=== PATIENT | female | born 1960 | race Caucasian/White ===

== ENCOUNTER 2020-06-23 11:38 | Outpatient (CLI) | payer OTHER, SELFPAY ==
--- NOTE | ~2020-06-23 | XR_ITS ---
EXAMINATION: XR chest 2V DATE: 06/23/2020 12:56 INDICATION: Preoperative evaluation. Perivascular risk factor of hypercholesterolemia. TECHNIQUE: PA and lateral views of the chest were obtained. COMPARISON: Chest radiograph dated 11/12/2009 FINDINGS: Small calcified nodule in the right lower lobe consistent with old granulomatous disease. No other ai rspace opacities, pulmonary edema, pleural effusion or pneumothorax. The cardiomediastinal silhouette is normal. Small bone island at the right humeral head. IMPRESSION: 1. No acute cardiopulmonary disease. Reviewed, dictated and finalized at location A.
--- NOTE | 2020-06-23 12:30 | ECG_ITS ---
Measurements Intervals [place] Rate: 62 P: 31 [place]: 113 QRS: 38 QRSD: 83 T: 28 QT: 405 QTc: 412 Interpretive Statements SINUS RHYTHM WITH SHORT [place] INTERVAL INCOMPLETE RIGHT BUNDLE BRANCH BLOCK BORDERLINE ECG Electronically Signed On 06-23-2020 12:56:55 CDT by Sudeep Gray D.O.
[2020-06-23 13:06] LABS: Basophils Absolute Auto 0.1 K/mm3 (0.0-0.1); Basophils Percent Auto 0.8 % (0.2-1.2); Eosinophils Absolute Auto 0.2 K/mm3 (0-0.3); Eosinophils Percent Auto 2.7 % (0-4.4); Hematocrit 39.7 % (37.0-47.0); Hemoglobin 12.9 g/dL (12.0-15.0); Immature Granulocyte Absolute 0.02 K/mm3 (0.00-0.031); Immature Granulocyte Percent A 0.3 % (0-0.5); Lymphocytes Absolute Auto 1.58 K/mm3 (0.9-3.2); Lymphocytes Percent Auto 25.5 % (18.3-44.2); Mean Corpuscular HGB Conc 32.5 g/dl (32-36); Mean Corpuscular Hemoglobin 30.7 pg (26-34); Mean Corpuscular Volume 94.5 fl (80-100); Monocytes Absolute Auto 0.6 K/mm3 (0.1-0.6); Neutrophils Absolute Auto 3.8 K/mm3 (1.3-6.7); Neutrophils Percent Auto 61.7 % (45.5-73.1); Platelet Count Result 261 k/mm3 (150-375); Red Cell Distribution Width 12.7 % (11.5-14.5); White Blood Count 6.2 K/mm3 (4.5-10.0)
[2020-06-23 13:14] LABS: Albumin Level 4.5 g/dL (3.5-5.1); Anion Gap 6 mmol/L (8-16); Blood Urea Nitrogen 19 mg/dL (7-17); Calcium 9.6 mg/dL (8.4-10.2); Carbon Dioxide 33 mmol/L (22-30); Chloride 100 mmol/L (98-107); Estimated Glomerular Filt Rate > 60; Glucose 96 mg/dL (65-105); Potassium 4.5 mmol/L (3.4-5.0); Sodium 139 mmol/L (137-145)
[2020-06-23 13:15] LABS: Urine Cotinine NEGATIVE
[2020-06-23 13:21] LABS: Hemoglobin A1C 4.9 % (<5.7)
== END 2020-06-23 11:39 | disposition home or self-care (01) ==
PROVIDERS: PCP Family Medicine; Visit Provider Orthopaedic Surgery
DX: Z01.812 Encounter for preprocedural laboratory examination (principal); M17.11 Unilateral primary osteoarthritis, right knee; I45.10 Unspecified right bundle-branch block; Z79.899 Other long term (current) drug therapy
CPT/HCPCS: 36415; 71046; 80048; 80307; 82040; 83036; 85025; 86850; 86900; 86901; 87070; 87077; 87186; 93005

== ENCOUNTER 2020-07-02 00:22 | Outpatient (CLI) | payer OTHER, SELFPAY ==
[2020-07-02 18:02] LABS: SARS-CoV-2 RNA PCR Negative
== END 2020-07-02 00:23 | disposition home or self-care (01) ==
LOC: ANHCOVIDDT 00:22
PROVIDERS: PCP Family Medicine; Visit Provider Orthopaedic Surgery
DX: Z01.812 Encounter for preprocedural laboratory examination (principal); Z20.828 Contact with and (suspected) exposure to other viral communicable diseases
CPT/HCPCS: 87635; C9803; U0003

== ENCOUNTER 2020-07-06 13:25 | Observation (INO) | payer OTHER, SELFPAY ==
[2020-06-23 11:53] VITALS: BP 102/64; PULSE 68; RESP 18; TEMP 36.9; O2SAT 98
[2020-06-23 12:29] VITALS: BMI 27.3
--- NOTE | 2020-07-02 07:49 | PM.IMHP ---
H&P: HPI History of Present Illness Date/Time: 07/02/20 07:49 <NARCISA Sims - Last Filed: 07/02/20 08:04> Chief complaint: RA Right Knee <NARCISA Sims - Last Filed: 07/02/20 08:04> Narrative: Annie Bradley is a 60 [address] Of [address] White who presents today for a right total knee arthroplasty. She has had progressively worsening pain in this knee. She has had arthroscopy done years his knee and difficult with her range of motion following that. She has been diagnosed with sero negative rheumatoid arthritis. She has been multiple medications from the support clerk without improvement of her symptoms. Her arthritis x-rays has progressed over last 4-5 months. Gotten from medications. She has tried cortisone injections, last being in December of this year which 2 weeks of relief. She is miserable on a daily basis with regard to pain the knee and feels she would rather proceed with total knee continue nonsurgical treatment. <NARCISA Sims - Last Filed: 07/02/20 08:04> Review of Systems Review of Systems: All systems reviewed & are unremarkable except as noted in HPI and below <NARCISA Sims - Last Filed: 07/02/20 08:04> [facility] Past Medical History Medical History: Medical History (Updated 07/02/20 @ 12:52 by Franck Harley MD) Hypothyroidism (acquired) Mixed hyperlipidemia <NARCISA Sims - Last Filed: 07/02/20 08:04> Surgical History Surgical History: Surgical History H/O laparoscopy left ovarian cyst <NARCISA Sims - Last Filed: 07/02/20 08:04> Family History Family History: Family History Mother Hypertension Father Family history of cardiovascular disease Other Family history of glaucoma Family history of osteoarthritis Malignant neoplasm of prostate No family history of diabetes mellitus No family history of hypertension No family history of malignant neoplasm <NARCISA Sims - Last Filed: 07/02/20 08:04> Social History Social History: Social History Smoking status: Never smoker Alcohol intake: never Substance use: never Living arrangements: with family Spiritual care concerns: No <NARCISA Sims - Last Filed: 07/02/20 08:04> Meds Home Medications and Allergies Home medications: Home Medications Medication Instructions Recorded Confirmed Type alprazolam 0.5 mg PO HS 06/23/20 07/05/20 History atorvastatin 10 mg PO HS 06/23/20 07/05/20 History fluoxetine 20 mg PO HS 06/23/20 07/05/20 History levothyroxine 50 mcg PO HS 06/23/20 07/05/20 History metoprolol succinate 50 mg PO HS 06/23/20 07/05/20 History trazodone 50 mg PO HS 06/23/20 07/05/20 History <NARCISA Sims - Last Filed: 07/02/20 08:04> Allergies/Adverse reactions: Allergies Allergy/AdvReac Type Severity Reaction Status Date / Time hydroxychloroquine Allergy Mild Numbness Verified 06/30/20 16:21 [From Plaquenil] Sulfa (Sulfonamide Allergy Mild Rash Verified 06/30/20 16:21 Antibiotics) venlafaxine [From Effexor] Allergy Mild Rash Verified 06/30/20 16:21 erythromycin base AdvReac Mild Confusion Verified 06/30/20 16:21 methotrexate AdvReac Mild Unknown Verified 06/30/20 16:21 <NARCISA Sims - Last Filed: 07/02/20 08:04> Exam Narrative: Exam Narrative: 60-year-old female very alert pleasant in distress. She walks with a mild limp due to pain in the right knee. Has mild effusion right knee no redness or warmth. 2+ dorsalis pedis pulse, absent posterior tibial artery pulse. Hip range of motion causes no discomfort. Range of motion right knee is from 0-135 degrees. She has prominent medial pseudolaxity to valgus stress with a good endpoint. Normal AP stability. Negative Stinchfield maneuver. Normal sensation right lower extrem
--- NOTE | 2020-07-02 12:52 | WPDANESEPPF ---
Anes - Initial Pre Proc Eval Procedure: Operation Date: 07/05/20 07:30 Proposed Procedures p Right Total Knee Arthroplasty - Anil Ahn MD Date/Time: 07/02/20 12:52 Surgeon: Anil Ahn MD Pre Op Diagnosis: RA Right Knee Patient Data Age: 60 Gender: F Height: 5 ft 1 in Weight: 65.8 kg Last Vital Signs Temp 98.5 F 06/23/20 11:53 Pulse 68 06/23/20 11:53 Resp 18 06/23/20 11:53 BP 102/64 06/23/20 11:53 Pulse Ox 98 06/23/20 11:53 Allergies Allergy/AdvReac Type Severity Reaction Status Date / Time hydroxychloroquine Allergy Mild Numbness Verified 06/30/20 16:21 [From Plaquenil] Sulfa (Sulfonamide Allergy Mild Rash Verified 06/30/20 16:21 Antibiotics) venlafaxine [From Effexor] Allergy Mild Rash Verified 06/30/20 16:21 erythromycin base AdvReac Mild Confusion Verified 06/30/20 16:21 methotrexate AdvReac Mild Unknown Verified 06/30/20 16:21 Home Medications Medication Instructions Recorded Confirmed Type alprazolam 0.5 mg PO HS 06/23/20 07/05/20 History atorvastatin 10 mg PO HS 06/23/20 07/05/20 History fluoxetine 20 mg PO HS 06/23/20 07/05/20 History levothyroxine 50 mcg PO HS 06/23/20 07/05/20 History metoprolol succinate 50 mg PO HS 06/23/20 07/05/20 History trazodone 50 mg PO HS 06/23/20 07/05/20 History Patient hx anesthesia problems: none Family hx anesthesia problems: none PMFSH Past Medical History Medical History (Updated 07/02/20 @ 12:52 by Franck Harley MD) Hypothyroidism (acquired) Mixed hyperlipidemia Surgical History Surgical History H/O laparoscopy left ovarian cyst Family History Family History Mother Hypertension Father Family history of cardiovascular disease Other Family history of glaucoma Family history of osteoarthritis Malignant neoplasm of prostate No family history of diabetes mellitus No family history of hypertension No family history of malignant neoplasm Social History Social History Smoking status: Never smoker Alcohol intake: never Substance use: never Living arrangements: with family Spiritual care concerns: No Anes - Eval Final PreProcedure Day of Procedure 07/02/20 12:52 Patient weight: normal Heart: regular rate and rhythm Lungs: clear to auscultation Airway: Mallampati scale class III Neurological: alert and oriented Last oral intake: >/= 8 hours ASA classification: II Emergent: no Anesthetic plan: proceed Anesthesia type and monitoring: general LMA and standard monitoring Informed Consent: The patient's anesthetic plan and its attendant risks and benefits were discussed with the patient/family/POA. Questions were solicited and answers provided to the satisfaction of the patient/family/POA.
[2020-07-05] VITALS (12 sets, daily range): BP systolic 111–149; BP diastolic 56–89; PULSE 65–110; RESP 9–20; TEMP 35.9–36.7; O2SAT 91–100
[2020-07-05] MEDS: LACTATED RINGERS 1,000 ML 30 ML IV CONT ×2 (06:43→10:57)
[2020-07-05] MEDS: ACETAMINOPHEN 500 MG TABLET 1000 MG PO ×3 (06:50→18:27)
[2020-07-05] MEDS: TRANEXAMIC ACID 1,000MG/ISO100 1,000 MG/100 ML BAG 200 MG IVPB (07:00)
[2020-07-05] MEDS: KETOROLAC 15 MG/ML VIAL (*BKC) IV PUSH ×2 (07:05→21:21)
--- NOTE | 2020-07-05 07:18 | WPDHPUPDATE1 ---
History and Physical Update Update Date/Time: 07/05/20 07:18 History and Physical has been reviewed, including an updated exam of the patient. There are NO changes in the patient's condition. Risks, benefits, and alternatives have been discussed and questions answered. Patient agrees to proceed with procedure.
[2020-07-05] MEDS: ceFAZolin 2 GM/D5W 50 ML 2 GM/50 ML BAG IVPB (07:57)
[2020-07-05] MEDS: GENTAMICIN BONE CEMENT REFOBACIN 1 EACH TOPICAL (08:11)
[2020-07-05] MEDS: ceFAZolin SODIUM 1 GM VIAL 3 GM IRRIGATION (08:12)
[2020-07-05] MEDS: ceFAZolin SODIUM 1 GM VIAL IV PUSH (09:49)
--- NOTE | 2020-07-05 10:49 | PM.PROC ---
Procedure Note - Detailed Date of procedure: 07/05/20 Pre-op diagnosis: RA Right Knee Post-op diagnosis: same Procedure performed: Right total knee arthroplasty Description of procedure: patient was brought to the operating room and general anesthesia was administered the right knee prepped draped usual fashion. She received 2 g of Ancef weight based vancomycin 1 g of tranexamic acid preoperatively. Limb was exsanguinated and tourniquet elevated to 300 mmHg. A 7 in longitudinal midline incision was used and a vastus medialis splitting approach utilized spoke splitting the vastus medialis at level of the superior pole of patella. Osteophytes were removed around the patella. The patella showed eburnation and cupping due to bone wear on the medial side of the patella that included the central median ridge. Laterally on the entire lateral facet the cartilage was normal. There is a corresponding area of full-thickness cartilage loss and eburnated bone on the medial trochlear ridge. Osteophytes were carefully removed and a Henry very conservative lateral facetectomy performed and the thickness of the patella measured 18 mm. I felt this was too thin to safely resurface her patella and elected to treat the patella with non resurfacing because of its thin status. Next a guide christianne was inserted down the femoral canal after aspiration of canal contents using the 5 degree valgus cutting bushing 9 mm of bone removed the distal femur. This removed about 8 laterally. It was notable that the lateral trochlear ridge Thatch lateral femoral condyle had normal articular cartilage. There is no beefy red synovitis in the knee. The synovium looked planned. Next the tibial plateau was cut. We made a skiving cut off the low point of the medial tibial plateau and because of the fact that she had very little slope, this was just under the subchondral bone line even posteriorly on the medial side. This removed about 9 mm from lateral side. Medial tibial osteophyte was removed and a very conservative medial capsular release was performed to expose the medial tibial plateau. PCL was preserved. The lateral gap was 11 the medial gap 8 mm at 90?. Whitesides line was drawn on the femur earlier and the femoral sizing guide set at 3? external rotation matched Whitesides line exactly. size 62.5 was the appropriate fit on the anterior to posterior dimension however was far too wide. We added a few degrees of posterior slope to the distal femoral cut and cut the femur to a size 60. And this fit flush with the anterior cortex. The tibia was sized to a size 63 which fit line to line anteromedial to posterolateral in proper rotation. This was punched. We trialed with a 10 CR insert and were a little bit tight medially in flexion. In assessing the tibial cut I felt we were degree of valgus and another mm of bone was shaved from the medial side the medial tibial plateau. on trialing were still a bit tight medially. I elected to increase the tibial slope from 3? to 6? and with 3 punching and trialing we had appropriate balance in flexion extension mm applied medially at 90? to laterally and full extension with 1 to 2 mm each of medial and lateral opening in extension. Lug holes in the femoral trial were drilled and step drill was used to make multiple perforations in the dense medial tibial plateau and distal posterior femur. The bony surfaces were thoroughly irrigated and dried. Two batches of methylmethacrylate 1 continue the gentamicin powder mixed immediately applied the 63 tibial and 60 CR femoral components. Cement was applied to the tibia pressurized and the 63 tibia fully seated. Cement applied to the femur and femoral component fully seated the knee brought into about 10? of flexion with an 11 mm CR trial for pressurization. Tourniquet was released 109 minutes. After cement hardening excess cement was sought for removed. We trialed the 10 which had excellent range of motion. With t
--- NOTE | 2020-07-05 11:50 | PC.NURSE ---
This patient, Annie Bradley, was admitted to 2 Medical Room 240-. Patient/family oriented to hospital policies and general routines including ID bracelet, bed and alarms, visiting hours, pain management, procedures, bathroom and other care routines, personal items, smoking policy, room service/diet, and visiting hours. Valuables list has been completed. Information on how to activate the Rapid Response Team has been discussed. Patient/Family are encouraged to report perceived risks to care and to ask questions if they do not understand what they are told or what they should do.
[2020-07-05] MEDS: oxyCODONE HCL (*CRX) 5 MG TAB IR PO ×5 (12:45→23:26)
--- NOTE | 2020-07-05 15:05 | PM.IMCN ---
Assessment and Plan Assessment and plan (1) History of total right knee replacement (TKR): Code(s): Z96.651 - Presence of right artificial knee joint Status: Acute Assessment and Plan: DVT prophylaxis as per orthopedic physician. His affect the patient is going to be on Eliquis. She has bilateral SCDs and TEDs on at this point. Her Arshad dressing to the right knee is dry and intact. no drainage is noted. Pain management per Ortho. On postop care per orthopedic physician. (2) Mixed hyperlipidemia: Code(s): E78.2 - Mixed hyperlipidemia Status: Chronic Assessment and Plan: continue with atorvastatin. (3) Anxiety: Code(s): F41.9 - Anxiety disorder, unspecified Status: Chronic Assessment and Plan: Patient is on Prozac. Her alprazolam is on hold at this time. (4) Hypothyroidism (acquired): Code(s): E03.9 - Hypothyroidism, unspecified Status: Chronic Assessment and Plan: Continue with patient's levothyroxine. (5) Rheumatoid arthritis: Code(s): M06.9 - Rheumatoid arthritis, unspecified Status: Chronic Assessment and Plan: Patient stated that this is very well controlled and cannot tolerate NSAIDs. She said that the NSAIDs have affected her liver and her kidneys in the past. She had been on Cymbalta but was taken off of that is not currently taking any of her medications at this time she is doing well with this. (6) Gastro-esophageal reflux disease without esophagitis: Code(s): K21.9 - Gastro-esophageal reflux disease without esophagitis Status: Acute Additional Plan Tachyarrhythmia patient is on metoprolol for that. She avoids caffeine. Insomnia continue with trazodone. HPI Data of Consult Consult date: 07/05/20 Requesting Physician: Anil Ahn MD Primary Care Provider: Kristopher White MD Consult Narrative Narrative: Annie Bradley is a 60 year old female Who has a history of rheumatoid arthritis be she also has severe osteoarthritis. The patient has been complaining of right knee discomfort. She said it has affected her activities of daily life. She did try a steroid injection that only lasted approximately 2 weeks. The patient stated her initial x-ray showed mild arthritis and it was later repeated and it was showing severe osteoarthritis. The patient was having start-up pain as well as nocturnal pain as well. The patient also tried some exercises which did not help. Her last cortisone injection was December of this year. She has been miserable on daily basis. The patient does not take any medications for her RA she had been on Cymbalta but recently was taken off of it. She cannot tolerate NSAIDs either. She has been doing well with her RA without it. Patient underwent a right total knee today. Please see procedure note that is detailed from today. According to the operative note patient had an estimated blood loss around 150 without any immediate complications. I think orthopedic physician for this consult. The date of service is Review of Systems Review of Systems: All systems reviewed & are unremarkable except as noted in HPI and below Constitutional: Constitutional: Reports as per HPI and Reports no additional constitutional complaints Eyes: Eyes: Reports as per HPI and Reports no additional eye complaints ENT: Reports system reviewed and no additional complaints, except as documented and Reports Normal hearing present Cardiovascular: Cardiovascular: Reports no additional cardiovascular complaints Respiratory: Respiratory: Reports no additional respiratory complaints and Reports no additional respiratory complaints Gastrointestinal: Gastrointestinal: Reports as per HPI and Reports no additional gastrointestinal complaints Musculoskeletal: Musculoskeletal: Reports no additional musculoskeletal complaints Integumentary/Breasts: Skin/Breast: Reports system reviewed and no
[2020-07-05] MEDS: SENNA/DOCUSATE SODIUM TABLET 2 TAB PO (17:25)
[2020-07-05] MEDS: DOCUSATE SODIUM 100 MG CAPSULE PO (17:25)
[2020-07-05] MEDS: METOPROLOL SUCCINATE EXT REL 50 MG TABCR PO (21:17)
[2020-07-05] MEDS: LEVOTHYROXINE SODIUM 50 MCG TABLET PO (21:18)
[2020-07-05] MEDS: traZODone HCL 50 MG TABLET PO (21:18)
[2020-07-05] MEDS: ATORVASTATIN 10 MG TABLET PO (21:18)
[2020-07-05] MEDS: FLUoxetine HCL 20 MG CAPSULE PO (21:18)
[2020-07-05] MEDS: MORPHINE SULFATE (*CRX) 4 MG/ML INJ 2 MG IV PUSH (22:36)
[2020-07-06] VITALS (8 sets, daily range): BP systolic 110–149; BP diastolic 66–83; PULSE 58–81; RESP 14–20; TEMP 36.2–36.9; O2SAT 94–97
--- NOTE | ~2020-07-06 | XR_ITS ---
XR knee RT 2V DATE: 07/05/2020 11:01 INDICATION: Right total knee arthroplasty TECHNIQUE: Postoperative AP and lateral views COMPARISON: None FINDINGS: There is subcutaneous emphysema and intra-articular gas as expected immediately postoperati vely. There is right knee arthroplasty without patellar resurfacing. No fracture or dislocation, gabriele osteal reaction or bone destruction or any unusual radiopaque foreign body is identified. IMPRESSION: Status post right knee arthroplasty Reviewed, dictated and finalized at location B.
[2020-07-06] MEDS: MORPHINE SULFATE (*CRX) 4 MG/ML INJ 2 MG IV PUSH (00:57)
[2020-07-06] MEDS: ACETAMINOPHEN 500 MG TABLET 1000 MG PO ×4 (00:58→18:09)
[2020-07-06] MEDS: CYCLOBENZAPRINE HCL 10 MG TABLET PO ×2 (02:59→10:24)
[2020-07-06] MEDS: oxyCODONE HCL (*CRX) 5 MG TAB IR PO ×5 (03:34→16:09)
[2020-07-06] MEDS: MORPHINE SULFATE (*CRX) 2 MG/ML INJ IV PUSH ×3 (05:12→11:06)
[2020-07-06 06:15] LABS: Basophils Percent Auto 0.1 % (0.2-1.2); Hematocrit 31.3 % (37.0-47.0); Hemoglobin 10.4 g/dL (12.0-15.0); Immature Granulocyte Absolute 0.08 K/mm3 (0.00-0.031); Immature Granulocyte Percent A 0.5 % (0-0.5); Lymphocytes Absolute Auto 1.36 K/mm3 (0.9-3.2); Lymphocytes Percent Auto 9.3 % (18.3-44.2); Mean Corpuscular HGB Conc 33.2 g/dl (32-36); Mean Corpuscular Hemoglobin 30.9 pg (26-34); Mean Corpuscular Volume 92.9 fl (80-100); Mean Platelet Volume 10.4 fl (7.4-10.4); Monocytes Absolute Auto 1.6 K/mm3 (0.1-0.6); Monocytes Percent Auto 10.8 % (2.6-8.5); Neutrophils Absolute Auto 11.6 K/mm3 (1.3-6.7); Neutrophils Percent Auto 79.3 % (45.5-73.1); Platelet Count Result 228 k/mm3 (150-375); Red Blood Count 3.37 M/mm3 (4.2-5.4); Red Cell Distribution Width 12.3 % (11.5-14.5); White Blood Count 14.7 K/mm3 (4.5-10.0)
[2020-07-06 06:38] LABS: Anion Gap 4 mmol/L (8-16); Blood Urea Nitrogen 17 mg/dL (7-17); Carbon Dioxide 31 mmol/L (22-30); Chloride 102 mmol/L (98-107); Estimated CRCL calculation 50 ml/min; Estimated Glomerular Filt Rate > 60; Glucose 122 mg/dL (65-105); Potassium 4.2 mmol/L (3.4-5.0); Sodium 137 mmol/L (137-145)
[2020-07-06] MEDS: MELOXICAM 7.5 MG TABLET PO (08:01)
[2020-07-06] MEDS: polyethylene glycoL 3350 17 GM POWD.PACK PO (08:02)
[2020-07-06] MEDS: DOCUSATE SODIUM 100 MG CAPSULE PO ×2 (08:02→16:10)
[2020-07-06] MEDS: APIXABAN 2.5 MG TABLET PO ×2 (08:02→21:22)
[2020-07-06] MEDS: SENNA/DOCUSATE SODIUM TABLET 2 TAB PO ×2 (08:02→16:09)
--- NOTE | 2020-07-06 10:48 | PM.IMPN ---
Progress Note: A&P Assessment and Plan (1) History of total right knee replacement (TKR): Code(s): Z96.651 - Presence of right artificial knee joint Status: Acute Assessment and Plan: ---- patient is doing well with physical therapy but is having significant pain this afternoon. Hopefully the pain medications will help. Continue Eliquis per ortho recommendations. Okay to discharge from medical standpoint once the patient's pain is controlled and does well with physical therapy. (2) Mixed hyperlipidemia: Code(s): E78.2 - Mixed hyperlipidemia Status: Chronic Assessment and Plan: ---- continue with atorvastatin. (3) Anxiety: Code(s): F41.9 - Anxiety disorder, unspecified Status: Chronic Assessment and Plan: ----- Stable. Patient is on Prozac. (4) Hypothyroidism (acquired): Code(s): E03.9 - Hypothyroidism, unspecified Status: Chronic Assessment and Plan: ----- Continue with patient's levothyroxine. (5) Rheumatoid arthritis: Code(s): M06.9 - Rheumatoid arthritis, unspecified Status: Chronic Assessment and Plan: ----- Patient stated that this is very well controlled and cannot tolerate NSAIDs. She said that the NSAIDs have affected her liver and her kidneys in the past. She had been on Cymbalta but was taken off of that is not currently taking any of her medications at this time she is doing well with this. She needs to follow-up with her primary care physician about this. Additional Plan . Time Spent With Patient Time with patient: 25 - 35 minutes Subjective Date/time seen: 07/06/20 10:48 Interval history: Pt is a 60-year-old female here for right knee replacement. Patient was seen today and states she is in significant pain 06/17. She just got some pain medication and is hoping this will help. Earlier today she was able to do physical therapy including stairs and she did well with that. She has been eating and drinking well. She has not had a bowel movement. She denies chest pain, shortness of breath, fevers, chills, abdominal pain or nausea or vomiting. She has help at home Review of Systems Review of Systems: All systems reviewed & are unremarkable except as noted in HPI and below Exam Narrative: Exam Narrative: General: Well developed well nourished patient resting comfortably in bed in NAD HEENT: normocephalic Neck: supple Neuro: Alert and oriented x4 CV:RRR Resp:CTA Abd: Soft, non distended. No pain to palpation. Positive bowel sounds Extremities: right knee with bandage covering without any excessive bleeding, erythema, or discharge. Pulses and sensation intact. Left leg within normal limits Objective Data Vital Signs Vital Signs: Vital Signs - 24 hr 07/05/20 10:57 07/05/20 11:11 07/05/20 11:25 Temperature 97.4 F L Pulse Rate 110 H 88 90 Respiratory Rate 12 9 L 12 Blood Pressure 124/70 122/69 117/83 Pulse Oximetry 99 100 96 07/05/20 11:50 07/05/20 12:00 07/05/20 12:30 Temperature 96.9 F L 97.0 F L 96.8 F L Pulse Rate 93 86 87 Respiratory Rate 16 16 18 Blood Pressure 138/70 149/79 H 132/66 Pulse Oximetry 92 95 95 07/05/20 13:30 07/05/20 17:30 07/05/20 21:17 Temperature 96.6 F L 98.0 F Pulse Rate 74 72 70 Respiratory Rate 18 18 Blood Pressure 136/64 148/89 H Pulse Oximetry 97 94 07/05/20 21:23 07/06/20 01:23 07/06/20 05:23 Temperature 97.8 F 97.4 F L 97.6 F Pulse Rate 70 81 66 Respiratory Rate 20 20 20 Blood Pressure 144/72 H 118/72 110/68 Pulse Oximetry 95 96 95 07/06/20 09:45 Temperature 98.2 F Pulse Rate 58 L Respiratory Rate 18 Blood Pressure 141/67 H Pulse Oximetry 94 Intake/Output Intake/Output: Intake & Output 07/03/20 07/04/20 07/05/20 07/06/20 23:59 23:59 23:59 23:59 Intake Total 940 1220 Output Total 2100 Balance 940 -880 Meds/Results Medications: Active Medications Generic Name Dose Route St
--- NOTE | 2020-07-06 11:39 | PC.NURSE ---
Patient continues to have uncontrolled pain in right knee. Neurovascular checks remain unchanged. Patient c/o worst pain in inner knee and a soreness like a bruise to the upper leg right above knee. No significant bruising or swelling noted. Dressing remains D/I without drainage on bandage. Called Dr. Ahn and discussed all of the above with him. Orders received.
[2020-07-06] MEDS: oxyCODONE HCL (*CRX) 10 MG TAB SR 12HR PO (12:18)
--- NOTE | 2020-07-06 12:23 | PC.NURSE ---
Capnography on patient as ordered. O2 sat noted to be 90% on room air. Applied O2 at 2 liters per nasal cannula. O2 sat now 94%. Patient resting in bed.
[2020-07-06] MEDS: CEPHALEXIN 500 MG CAPSULE PO ×3 (13:35→23:50)
--- NOTE | 2020-07-06 13:37 | PC.NURSE ---
Patient continues to rate pain 8-9/10. Patient sleeping when I walk into room. O2 sat 98% on 2 liters. Decreased O2 to 1 liter per nasal cannula. Discussed O2 sats and continued c/o pain with Dr. Ahn. He is now here to assess patient.
--- NOTE | 2020-07-06 14:07 | PM.PNORT ---
Progress Note: A&P Additional Plan Patient is postoperative day 1. After total knee arthroplasty. She has reported that she is not getting very good pain control. Last night we added Flexeril. She was getting IV Toradol around the clock she was taking 1000 mg of Tylenol every 6 hours scheduled I believe she has been taking 10 mg of oxycodone every 4 hours. She did not feel that the Flexeril made much difference last night. I think her increased pain last night probably coincided with the local anesthetic cocktail wearing off. She complains of anteromedial knee pain. Clinically there is no significant swelling at the knee. She has intact sensation motor function in the foot. Her dressing is dry there has been no bleeding. She has mild acute blood loss anemia with hemoglobin of 10.4 this morning. White count is elevated 14.7 likely related to the stress of surgery platelets [id number]. We have started the Eliquis 2.5 mg twice daily this morning at 9:00 a.m.. Her creatinine was 0.9 this morning. Two weeks ago it was 0.8. Her GFR is greater than 60 calculated. She does have a history of renal failure when she was taking 8 meloxicam tablets daily for a stretch of time. She understands that she is on a very low dose of meloxicam 7.5 mg which I think will add to her pain management hopefully without causing renal insufficiency. We will check a BMP and a CBC tomorrow. I have elected to keep her as an inpatient for pain control. She had received the 2 Percocet and we added 10 mg Contin q.12 hours this afternoon . Shortly after this she was noted to have O2 sat around 90% was placed on 2 L. We have initiated cap not her face and she is requiring high-dose narcotics. She had used the 2 mg IV morphine every 2 hours during the night but did notice a difference with that. I have ordered 0.5 mg of Dilaudid q.2 hours p.r.n. breakthrough pain for today have recommend that she wait a couple of hours to see how the OxyContin and oxycodone and works for her but she has just had. I am also going to give her a 10 mg dose of Decadron which may hopefully substantially alleviate her pain through various mechanisms. 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 She did well in therapy she has been up and walking around and she tolerates that well. Does the resting pain that is not well controlled for. I did preparole counseling aide her on avoidance of use of alprazolam that she takes to help her sleep at night, and till she is off the narcotics as this can stop her breathing or depressed her breathing Drive and cause over dosage. I asked her about ice considering the use of a ColoWrap continuous ice machine but she generally finds ice uncomfortable and seems to cause a cold aching feeling so we will just use the simple ice pack through [employer] for little bit of ooollness. Also she requests that she is not made to sit in a chair for prolonged period. As having the leg down below her heart mixed ache more. Her pain is over the anteromedial aspect of her knee and I think relates to the arthrotomy. I was see how she is doing tomorrow and if she is feeling better we can discharge her tomorrow. Subjective Subjective Date/Time Seen: 07/06/20 14:07 Objective Data Vital Signs Vital Signs: Vital Signs - 24 hr 07/05/20 17:30 07/05/20 21:17 07/05/20 21:23 Temperature 36.7 C 36.6 C Pulse Rate 72 70 70 Respiratory Rate 18 20 Blood Pressure 148/89 H 144/72 H Pulse Oximetry 94 95 07/06/20 01:23 07/06/20 05:23 07/06/20 09:45 Temperature 36.3 C L 36.4 C 36.8 C Pulse Rate 81 66 58 L Respiratory Rate 20 20 18 Blood Pressure 118/72 110/68 141/67 H Pulse Oximetry 96 95 94 07/06/20 13:21 Temperature 36.9 C Pulse Rate 62 Respiratory Rate 18 Blood Pressure 149/83 H Pulse Oximetry 97 Intake/Output Intake/O
--- NOTE | 2020-07-06 18:24 | PC.NURSE ---
Patient resting comfortably and states her pain feels improved slightly. She states she wants to hold off on any further prn pain medications for now. Offered to elevate right leg with 3 pillows as ordered, but patient declines stating that is more uncomfortable for her. Using ice gel packs off and on. Dr. Ahn aware that patient not using ice consistently and also stated patient could use pillows per her comfort.
--- NOTE | 2020-07-06 20:11 | PC.NURSE ---
PT SLEEPING. RESPIRATIONS 13, O2 SAT 97% ON 1 L. PT AROUSES EASILY BUT DOZES BACK OFF. WHEN ASKED ABOUT PAIN LEVEL PT STATES ITS A 5 OR 6 BUT THEN DOZES OFF. WILL MONITOR
[2020-07-06] MEDS: METOPROLOL SUCCINATE EXT REL 50 MG TABCR PO (21:21)
[2020-07-06] MEDS: LEVOTHYROXINE SODIUM 50 MCG TABLET PO (21:22)
[2020-07-06] MEDS: ATORVASTATIN 10 MG TABLET PO (21:22)
[2020-07-06] MEDS: FLUoxetine HCL 20 MG CAPSULE PO (23:49)
[2020-07-07] VITALS: BP 125/67; PULSE 65; RESP 18; TEMP 36.6; O2SAT 99
--- NOTE | 2020-07-07 02:08 | PC.NURSE ---
PT RESTING QUIETLY WITH EYES CLOSED, RESP 18, O2 SAT 97%
--- NOTE | 2020-07-07 04:07 | PC.NURSE ---
PT RESTING WITH EYES CLOSED, RESP EVEN AND UNLABORED, O2 SAT 97%
[2020-07-07 04:24] VITALS: BP 109/61; PULSE 72; RESP 16; TEMP 37.4; O2SAT 97
[2020-07-07] MEDS: CEPHALEXIN 500 MG CAPSULE PO ×2 (06:05→12:56)
[2020-07-07 06:15] VITALS: TEMP 36.8
[2020-07-07] MEDS: oxyCODONE HCL (*CRX) 5 MG TAB IR PO ×3 (06:26→18:35)
[2020-07-07 06:32] LABS: Hemoglobin 11.3 g/dL (12.0-15.0); Mean Corpuscular HGB Conc 32.3 g/dl (32-36); Mean Corpuscular Volume 95.9 fl (80-100); Mean Platelet Volume 10.5 fl (7.4-10.4); Platelet Count Result 246 k/mm3 (150-375); Red Blood Count 3.65 M/mm3 (4.2-5.4); Red Cell Distribution Width 12.5 % (11.5-14.5)
[2020-07-07 06:47] LABS: Anion Gap 5 mmol/L (8-16); Blood Urea Nitrogen 17 mg/dL (7-17); Calcium 9.4 mg/dL (8.4-10.2); Carbon Dioxide 34 mmol/L (22-30); Chloride 102 mmol/L (98-107); Estimated CRCL calculation 56 ml/min; Estimated Glomerular Filt Rate > 60; Glucose 114 mg/dL (65-105); Potassium 4.3 mmol/L (3.4-5.0); Sodium 141 mmol/L (137-145)
[2020-07-07] MEDS: oxyCODONE HCL (*CRX) 10 MG TAB SR 12HR PO (09:05)
[2020-07-07] MEDS: polyethylene glycoL 3350 17 GM POWD.PACK PO (09:05)
[2020-07-07] MEDS: SENNA/DOCUSATE SODIUM TABLET 2 TAB PO ×2 (09:05→18:36)
[2020-07-07] MEDS: APIXABAN 2.5 MG TABLET PO (09:06)
[2020-07-07] MEDS: DOCUSATE SODIUM 100 MG CAPSULE PO (09:06)
[2020-07-07] MEDS: MELOXICAM 7.5 MG TABLET PO (09:06)
[2020-07-07 10:51] VITALS: BP 125/62; PULSE 68; RESP 15; TEMP 36.6; O2SAT 97
[2020-07-07 14:00] VITALS: BP 123/71; PULSE 65; RESP 19; TEMP 37.7; O2SAT 97
--- NOTE | 2020-07-07 17:36 | PM.DS ---
DS: Admitting Diagnosis Admitting Diagnosis Admitting Diagnosis: RA Right Knee DS: Summary Time Spent with Patient Time attestation: Patient underwent total knee arthroplasty on 2019. She has done well postoperatively mobilizing but has had difficulty controlling her pain and was admitted to formally for pain control. Her pain is much less today which she is still needing the narcotic pain pills around the clock. She is in good spirits and in no distress and she is cooperating well with physical therapy and done well. It seemed that the Decadron helped her pain quite a bit therefore I am going to give her an additional 5 mg prednisone daily the next 5 days. Her creatinine has remained normal at 0.8. We are also using a low dose of meloxicam 7.5 mg daily for the next 2 weeks to assist with pain control. Her wound has been dry she has mild swelling today in the knee and the importance of elevation was emphasized. She is neurologically intact. She is weight-bearing as tolerated with a walker. DS: Data Data Completed and Pending Labs on day of discharge: Labs from last 24 hours 07/07/20 07/07/20 05:46 05:46 WBC 16.0 H RBC 3.65 L Hgb 11.3 L Hct 35.0 L MCV 95.9 MCH 31.0 MCHC 32.3 RDW 12.5 Plt Count 246 MPV 10.5 H Sodium 141 Potassium 4.3 Chloride 102 Carbon Dioxide 34 H Anion Gap 5 L BUN 17 Creatinine 0.80 Estim Creat Clear Calc 56 Estimated GFR > 60 Glucose 114 H Calcium 9.4 Discharge Plan Discharge Attending physician on discharge: Anil Ahn Consulting providers: Niurka Esteves Discharging Clinician: Anil Ahn Anticipated Discharge Date/Time: 07/07/20 17:16 Patient Disposition: Home, Self-Care Activity: february shower Diet: as tolerated Wound Care Instructions: other - see discharge instructions Discharge Instructions: General Discharge Instructions: - follow-up with your primary care physician in 1-2 weeks about this stay. If you have problems regarding your rheumatoid arthritis, talk to them at this time -You have been prescribed narcotic pain medication. This pain medication can make you constipated. Utilize [id number] medications to relieve your constipation symptoms. Take only as directed as these medications can be addictive. Do not drive on these medications. - worrisome signs and symptoms come back to emergency room for: chest pain, shortness of breath, fevers 100.4 or greater, progressive significant weakness, or any other worrisome symptom Go to physical therapy tomorrow. Weightbearing as tolerated. Range of motion goals 0-130 degrees. Remove the Mepilex dressing on 07 11 2020 and apply new 1 that will stay on until office appointment on 07/16/2020. You may shower and water will run over the surface of the dressing. Avoid sitting in the chair except for eating and going to bathroom. The next 10 days whenever not up walking, lay on backside either on couch or bed with leg elevated on pillows to reduce swelling. Work on gentle stretching. Straight position and gentle stretch in maximum bent position in the chair, for a few minutes every hour while awake. Do not resume alprazolam until you have weaned off the oxycodone as the combination can cause severe respiratory depression and overdose. Patient Instructions: Antibiotic Form, Apixaban (By mouth), Joint Replacement Surgery (DC), Knee Replacement (DC), Pain Management After Surgery (DC) Stand Alone Forms: General Discharge Information Follow-up/Referrals: Anil Ahn MD [Physician] - Discharge Medications: New oxycodone [OxyContin] 10 mg Tablet,Oral Only,Ext.Rel.12 Hr 10 mg PO Q12HR Qty: 20 RF: 0 oxycodone 5 mg tablet 5 mg PO Q4H PRN (Reason: pain) Qty: 40 RF: 0 sennosides-docusate sodium [Senokot-S] 8.6-50 mg Tablet 2 tab PO BID Qty: 60 RF: 0 polyethylene glycol 3350 [Miralax] 17 gram Powder In Packet 17 g PO QAM Qty
[2020-07-07] MEDS: predniSONE 5 MG TABLET PO (18:36)
== END 2020-07-07 18:56 | disposition home or self-care (01) ==
LOC: ANHSURGERY 13:27 → ANH2MED 13:28
PROVIDERS: Admitting Provider Orthopaedic Surgery; PCP Family Medicine; Visit Provider Orthopaedic Surgery
PROC: (CPT 27447; principal; 2020-07-05 07:30)
DX: M17.11 Unilateral primary osteoarthritis, right knee (principal); E03.9 Hypothyroidism, unspecified; E78.2 Mixed hyperlipidemia; F41.9 Anxiety disorder, unspecified; M06.9 Rheumatoid arthritis, unspecified; K21.9 Gastro-esophageal reflux disease without esophagitis; R00.0 Tachycardia, unspecified; Z23 Encounter for immunization
CPT/HCPCS: 27447; 36415; 71046; 73560; 80048; 80307; 82040; 83036; 85025; 85027; 86850; 86900; 86901; 87070; 87077; 87186; 87635; 90471; 90686; 93005; 97110; 97116; 97161; 97165; 97530; A9270; C1713; C1776; C9803; G0008; G0378; J0171; J0690; J1100; J1170; J1885; J2250; J2270; J2405; J2704; J2795; J3010; J3370; J7120; J7512; U0003

== ENCOUNTER → 2021-03-31 07:27 | Outpatient (CLI) | payer OTHER, SELFPAY ==
--- NOTE | ~2021-03-31 | XR_ITS ---
XR pelvis 1-2V 03/31/2021 08:31 Indication: Lower abdominal pain Procedure: AP pelvis Comparison: No prior studies for comparison. Findings: Pelvic rings are intact. Sacral foramen are symmetric. No fracture or traumatic malalignmen t. No significant soft tissue abnormality. Visualized bowel gas pattern nonobstructive. There are pel shukri phleboliths. Impression: 1: No acute abnormality of the pelvis. Reviewed, dictated and finalized at location B. Impression: 1: No acute abnormality of the pelvis.
--- NOTE | ~2021-03-31 | XR_ITS ---
XR lumbar spine 6V w bending 03/31/2021 08:31 Indication: Low back pain Procedure: 7 views lumbar spine Comparison: 08/05/2019. Findings: There is mild dextroscoliosis. There is mild disc narrowing at all lumbar levels. Pedicles intact. Sacral foramen are symmetric. No significant spondylolisthesis. There is multilevel facet hyp ertrophy of the mid and lower lumbar spine. No significant alteration of alignment with flexion/exten dwight. Impression: 1: Mild-moderate lumbar spondylosis with dextroscoliosis. Reviewed, dictated and finalized at location B. Impression: 1: Mild-moderate lumbar spondylosis with dextroscoliosis.
== END ==
PROVIDERS: PCP Family Medicine; Visit Provider Family Medicine
DX: R10.30 Lower abdominal pain, unspecified (principal); M47.816 Spondylosis without myelopathy or radiculopathy, lumbar region; M41.9 Scoliosis, unspecified
CPT/HCPCS: 72114; 72170

== ENCOUNTER → 2021-04-05 15:20 | Outpatient (CLI) | payer OTHER, SELFPAY ==
--- NOTE | ~2021-04-05 | MR_ITS ---
EXAMINATION: MR lumbar spine wo con DATE: 04/05/2021 16:35 INDICATION: Low back pain. TECHNIQUE: Magnetic resonance imaging (MRI) of the lumbar spine was performed without intravenous con trast. Sequences included sagittal T2-weighted FSE, sagittal T2-weighted FS FSE, sagittal T1-weighted FSE, and axial T2-weighted FSE. COMPARISON: Lumbar spine MRI 07/20/2007 FINDINGS: There is 7 degrees dextrocurvature of lumbar spine. Vertebral body heights are normal. Ther e is mildly decreased disc height at L1-L2 and L2-L3. The distal spinal cord signal intensity is norm al. The conus medullaris is at T12. The following disc levels are specifically discussed: L1-L2: The disc is bulging. There is no facet joint osteoarthritis. There is mild right neural forami nal stenosis. There is mild central canal stenosis. L2-L3: The disc is bulging and has an annular fissure. There is mild bilateral facet joint osteoarthr itis. There is mild bilateral neural foraminal stenosis. There is mild central canal stenosis. L3-L4: The disc is bulging. There is severe bilateral facet joint osteoarthritis. There is mild bilat eral neural foraminal stenosis. There is mild central canal stenosis. L4-L5: The disc is bulging. There is moderate bilateral facet joint osteoarthritis. There is mild maria alejandra ateral neural foraminal stenosis. There is mild central canal stenosis. L5-S1: The disc does not extend beyond the endplate margin. There is mild bilateral facet joint osteo arthritis. There is no neural foraminal stenosis. There is no central canal stenosis. IMPRESSION: 1. Mild lumbar spondylosis, worsened from 07/20/2007. Reviewed, dictated and finalized at location A.
== END ==
PROVIDERS: PCP Family Medicine; Visit Provider Family Medicine
DX: M54.5 Low back pain (principal); M47.816 Spondylosis without myelopathy or radiculopathy, lumbar region
CPT/HCPCS: 72148

== ENCOUNTER → 2021-08-02 15:51 | Outpatient (CLI) | payer OTHER, SELFPAY ==
--- NOTE | ~2021-08-02 | XR_ITS ---
XR hip RT min 2V 08/02/2021 16:33 INDICATION: Right hip pain PROCEDURE: 2 views right hip COMPARISON: 03/31/2021 FINDINGS: Fracture, dislocation or subluxation is not identified. No significant joint space narrowin g. The soft tissues appear within normal limits. No foreign bodies are identified. IMPRESSION: 1: NO ACUTE BONE OR JOINT ABNORMALITY IDENTIFIED. Reviewed, dictated and finalized at location A.
== END ==
PROVIDERS: PCP Family Medicine; Visit Provider Nurse Practitioner Adult Health
DX: M25.551 Pain in right hip (principal)
CPT/HCPCS: 73502

== ENCOUNTER 2021-08-31 08:03 | Outpatient (CLI) | payer OTHER, SELFPAY ==
--- NOTE | 2021-08-31 08:47 | ECG_ITS ---
Measurements Intervals [place] Rate: 52 P: 26 [place]: 106 QRS: 45 QRSD: 85 T: 30 QT: 424 QTc: 397 Interpretive Statements SINUS BRADYCARDIA WITH SHORT [place] INTERVAL INCOMPLETE RIGHT BUNDLE BRANCH BLOCK BASELINE ARTIFACT- I, III, AVR, AVL, AVF BORDERLINE ECG Electronically Signed On 08-31-2021 12:00:15 [place] by Sudeep Gray D.O.
[2021-08-31 09:28] LABS: Hematocrit 41.1 % (37.0-47.0); Hemoglobin 13.5 g/dL (12.0-15.0)
== END 2021-08-31 08:04 | disposition home or self-care (01) ==
LOC: ANHSURGERY 08:07
PROVIDERS: Anesthesiology; PCP Family Medicine; Visit Provider Surgery
DX: Z01.818 Encounter for other preprocedural examination (principal); K63.5 Polyp of colon; I10 Essential (primary) hypertension
CPT/HCPCS: 36415; 85014; 85018; 86850; 86900; 86901; 93005

== ENCOUNTER 2021-09-05 15:32 | Outpatient (CLI) | payer OTHER, SELFPAY ==
[2021-09-05 16:03] LABS: Anion Gap 4 mmol/L (8-16); Blood Urea Nitrogen 31 mg/dL (7-17); Calcium 9.6 mg/dL (8.4-10.2); Carbon Dioxide 31 mmol/L (22-30); Chloride 101 mmol/L (98-107); Estimated Glomerular Filt Rate > 60; Glucose 105 mg/dL (65-110); Potassium 4.1 mmol/L (3.4-5.0); Sodium 136 mmol/L (137-145)
[2021-09-05 16:05] LABS: Basophils Absolute Auto 0.1 K/mm3 (0.0-0.1); Basophils Percent Auto 0.6 % (0.2-1.2); Eosinophils Absolute Auto 0.2 K/mm3 (0-0.3); Eosinophils Percent Auto 1.8 % (0-4.4); Hematocrit 38.2 % (37.0-47.0); Hemoglobin 12.8 g/dL (12.0-15.0); Immature Granulocyte Absolute 0.05 K/mm3 (0.00-0.031); Immature Granulocyte Percent A 0.5 % (0-0.5); Lymphocytes Absolute Auto 2.14 K/mm3 (0.9-3.2); Lymphocytes Percent Auto 20.1 % (18.3-44.2); Mean Corpuscular HGB Conc 33.5 g/dl (32-36); Mean Corpuscular Hemoglobin 31.4 pg (26-34); Mean Corpuscular Volume 93.9 fl (80-100); Mean Platelet Volume 9.8 fl (7.4-10.4); Monocytes Percent Auto 9.4 % (2.6-8.5); Neutrophils Absolute Auto 7.2 K/mm3 (1.3-6.7); Neutrophils Percent Auto 67.6 % (45.5-73.1); Platelet Count Result 238 k/mm3 (150-375); Red Blood Count 4.07 M/mm3 (4.2-5.4); Red Cell Distribution Width 12.3 % (11.5-14.5); White Blood Count 10.7 K/mm3 (4.5-10.0)
[2021-09-05 16:34] LABS: Carcinoembryonic Antigen 0.6 ng/mL (0.0-3.0)
== END 2021-09-05 15:33 | disposition home or self-care (01) ==
LOC: ANHLAB 15:36
PROVIDERS: PCP Family Medicine; Visit Provider Surgery
DX: K63.5 Polyp of colon (principal)
CPT/HCPCS: 36415; 80048; 82378; 85025

== ENCOUNTER 2021-09-07 14:16 | Inpatient (IN) | payer OTHER, SELFPAY ==
--- NOTE | 2021-08-31 07:51 | PC.NURSE ---
Report to the Outpatient Waiting Room, entrance under the green pavilion located off [facility], at time _0600_ on date _09/07/21_. OR Time: _0730 AM_. - You and your visitor will be asked a series of questions to screen for COVID 19 for your protection. - A mask is required within the hospital. - Only one visitor is allowed at this time. Patient visitors will be guided where to wait when not with patient. Preoperative COVID Testing Requirements: No COVID Test needed if: (proof is required; if not received patient will have Rapid Test prior to entry) - Patient has received COVID Vaccine at least 14 days prior to procedure date or - Patient has positive COVID test result within last 90 days of surgery date. COVID Test needed if above criteria is not met If not COVID vaccinated a COVID test must be conducted within 72 hours of surgery and patient is asked to isolate self from time of testing until procedure. You will go to the [facility] for your COVID testing. The [facility] site is located at the corner of [address] [facility]. You will only be called if COVID results are positive and your surgeon may reschedule your elective surgery date. Patients may have clear liquids (water, carbonated beverages, clear teas, apple juice) until 3 hours prior to surgery (0430 AM) with a maximum of 20 ounces. - No food from midnight until time of surgery - Infants may have breast milk until 4 hours before surgery, formula 6 hours prior to surgery. - Children will be allowed to drink immediately following surgery. If applicable, please bring a bottle or sippy cup to assist with drinking. Juice, water, soda, and popsicles are readily available. For infants on formula, please bring formula the day of surgery. Pacifiers are allowed. Take the following medications with a SIP of water the morning of surgery: _NONE__ Medications to discontinue per physician _MULTI VITAMIN & CALCIUM CITRATE Date to take last dose__09/03/21 Please no make-up, nail nepali, hairspray, perfume, deodorant, or body powder the day of surgery. No jewelry (including any body piercings) or valuables the day of surgery, leave them at home. Please take a shower or bath the night before, or the morning of, surgery with an antibacterial soap. Wear comfortable, loose fitting clothing. Children are encouraged to wear pajamas. - Jewelry must be removed prior to entering the operating room. Rings and piercings that are not removed may be cut off. - The hospital will not accept responsibility for valuables. - Please leave all valuables, including medications, at home the day of surgery. If you are going home after surgery, a licensed courtesy car driver must drive you home. - NO public transportation without another adult. - We recommend that an adult stay with you for 24 hours following discharge. - We also recommend that you do not drive, make important decision, drink alcoholic beverages, or take any drugs that were not prescribed by your health care provider for at least 24 hours after your discharge time. For Pediatric surgeries, we recommend two adults accompany the child home (only one inside the building at this time). Follow any additional instructions given to you from your surgeon. ENSURE BUNDLE, BOWEL PREP, PRE-OP ANTIBIOTICS, HIBICLENS SHOWER DAY BEFORE AND AM OF SURGERY Telephone instructions given to ____PT and asked if any additional questions and then verbalized understanding. Patient advised to call surgeon office or pre surgery nurse liaison [phone] if any additional questions.
[2021-08-31 08:28] VITALS: BP 124/80; PULSE 52; RESP 18; TEMP 36.8; O2SAT 97; BMI 26.6
--- NOTE | 2021-09-06 12:47 | PM.IMHP ---
H&P: HPI History of Present Illness Date/Time: 09/06/21 12:47 Chief Complaint: CECAL POLYP Narrative: patient is a 61-year-old woman who underwent a screening [address] Jus Mcdonough. This showed a sessile cecal polyp which was unable to be resected colonoscopically. 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 Patient was seen in the office. She has been asymptomatic. She is taken to surgery now for hand access laparoscopic right colectomy. Review of Systems Review of Systems: All systems reviewed & are unremarkable except as noted in HPI and below Constitutional: Constitutional: Denies chills and Denies fever(s) Cardiovascular: Cardiovascular: Denies chest pain, Denies diaphoresis, Denies dyspnea and Denies paroxysmal nocturnal dyspnea Respiratory: Respiratory: Denies chest congestion, Denies cough and Denies dyspnea Integumentary/Breasts: Skin/Breast: Denies lesions and Denies rash PMFSH Past Medical History Medical History Anxiety Hypothyroidism (acquired) Mixed hyperlipidemia Rheumatoid arthritis Tachyarrhythmia Surgical History Surgical History H/O laparoscopy left ovarian cyst History of total right knee replacement (TKR) today S/P right knee arthroscopy Family History Family History Mother Hypertension Father Family history of cardiovascular disease Other Family history of glaucoma Family history of osteoarthritis Malignant neoplasm of prostate No family history of diabetes mellitus No family history of hypertension No family history of malignant neoplasm Social History Social History Social History: 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 She is a lifelong nonsmoker. The patient denies any alcohol use, marijuana use, or illicit drugs. She has 3 children. Her Moises is a durable power insurance defense attorney for healthcare. She is a full code. 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 Gender identity (if verbalized by the patient): Female Spiritual care concerns: No Meds Home Medications and Allergies Home Medications Medication Instructions Recorded Confirmed Type erythromycin 500 mg tablet 1 g PO .COMPLEX #6 tablet 08/12/21 08/31/21 Rx neomycin 500 mg tablet 1 g PO .COMPLEX #6 tablet 08/12/21 08/31/21 Rx alprazolam 0.5 mg PO HS 08/31/21 08/31/21 History atorvastatin 10 mg HS 08/31/21 08/31/21 History calcium citrate-vitamin D3 1 tablet PO HS 08/31/21 08/31/21 History [Calcium Citrate + D] fluoxetine 20 mg HS 08/31/21 08/31/21 History levothyroxine [Euthyrox] 50 mcg HS 08/31/21 08/31/21 History metoprolol succinate 50 mg HS 08/31/21 08/31/21 History multivitamin [Multi-Vitamin] 1 tablet PO HS 08/31/21 08/31/21 History trazodone 50 mg HS 08/31/21 08/31/21 History Allergies Allergy/AdvReac Type Severity Reaction Status Date / Time hydroxychloroquine Allergy Mild Numbness Verified 08/31/21 08:20 [From Plaquenil] Sulfa (Sulfonamide Allergy Mild Rash Verified 08/31/21 08:20 Antibiotics) venlafaxine [From Effexor] Allergy Mild Rash Verified 08/31/21 08:20 erythromycin base AdvReac Mild Confusion Verified 08/31/21 08:20 methotrexate AdvReac Mild INCREASE Verified 08/31/21 08:20 LIVER ENZYMES meloxicam AdvReac INCREASE Verified 08/31/21 08:20 LIVER ENZYMES NSAIDS (Non-Steroidal AdvReac INCREASE Verified 08/31/21 08:20 Anti-Inflamma LIVER ENZYMES Exam Const: General: cooperative, comfortable, no acute distress, alert and awake; No confusion Orientation/consciousness
--- NOTE | 2021-09-06 13:33 | WPDANESEPPF ---
Anes - Initial Pre Proc Eval Procedure: Operation Date: 09/07/21 07:30 Proposed Procedures p Hand Assisted Laparoscopic Right Colectomy - Abram Sandoval MD Date/Time: 09/06/21 13:33 Surgeon: Abram Sandoval MD Pre Op Diagnosis: cecal polyp Patient Data Age: 61 Gender: F Height: 1.56 m Weight: 64.9 kg Last Vital Signs Temp 98.3 F 08/31/21 08:28 Pulse 52 L 08/31/21 08:28 Resp 18 08/31/21 08:28 BP 124/80 08/31/21 08:28 Pulse Ox 97 08/31/21 08:28 Allergies Allergy/AdvReac Type Severity Reaction Status Date / Time hydroxychloroquine Allergy Mild Numbness Verified 08/31/21 08:20 [From Plaquenil] Sulfa (Sulfonamide Allergy Mild Rash Verified 08/31/21 08:20 Antibiotics) venlafaxine [From Effexor] Allergy Mild Rash Verified 08/31/21 08:20 erythromycin base AdvReac Mild Confusion Verified 08/31/21 08:20 methotrexate AdvReac Mild INCREASE Verified 08/31/21 08:20 LIVER ENZYMES meloxicam AdvReac INCREASE Verified 08/31/21 08:20 LIVER ENZYMES NSAIDS (Non-Steroidal AdvReac INCREASE Verified 08/31/21 08:20 Anti-Inflamma LIVER ENZYMES Home Medications Medication Instructions Recorded Confirmed Type alprazolam 0.5 mg PO HS 08/31/21 09/07/21 History atorvastatin 10 mg HS 08/31/21 09/07/21 History calcium citrate-vitamin D3 1 tablet PO HS 08/31/21 09/07/21 History [Calcium Citrate + D] fluoxetine 20 mg HS 08/31/21 08/31/21 History levothyroxine [Euthyrox] 50 mcg HS 08/31/21 08/31/21 History metoprolol succinate 50 mg HS 08/31/21 08/31/21 History multivitamin [Multi-Vitamin] 1 tablet PO HS 08/31/21 08/31/21 History trazodone 50 mg HS 08/31/21 08/31/21 History Patient hx anesthesia problems: none Family hx anesthesia problems: none Results Review: All pre-operative results and documents have been reviewed as part of the pre-operative evaluation. [facility] Past Medical History Medical History (Updated 09/06/21 @ 13:33 by Franck Harley MD) Anxiety Hypertension Hypothyroidism (acquired) Mixed hyperlipidemia Rheumatoid arthritis Tachyarrhythmia Surgical History Surgical History H/O laparoscopy left ovarian cyst History of total right knee replacement (TKR) today S/P right knee arthroscopy Family History Family History Mother Hypertension Father Family history of cardiovascular disease Other Family history of glaucoma Family history of osteoarthritis Malignant neoplasm of prostate No family history of diabetes mellitus No family history of hypertension No family history of malignant neoplasm Social History Social History Social History: 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 She is a lifelong nonsmoker. The patient denies any alcohol use, marijuana use, or illicit drugs. She has 3 children. Her Moises is a durable power contract attorney for healthcare. She is a full code. 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 Informed Consent: The patient's anes
[2021-09-07] VITALS (19 sets, daily range): BP systolic 74–130; BP diastolic 43–78; PULSE 59–97; RESP 8–20; TEMP 36.1–37.1; O2SAT 93–100
[2021-09-07] MEDS: LACTATED RINGERS 1,000 ML 30 ML IV CONT ×3 (06:35→10:08)
[2021-09-07] MEDS: ACETAMINOPHEN 500 MG TABLET 1000 MG PO (06:37)
[2021-09-07] MEDS: ALVIMOPAN 12 MG CAPSULE PO (07:06)
--- NOTE | 2021-09-07 07:14 | WPDHPUPDATE1 ---
History and Physical Update Update Date/Time: 09/07/21 07:14 History and Physical has been reviewed, including an updated exam of the patient. There are NO changes in the patient's condition. Risks, benefits, and alternatives have been discussed and questions answered. Patient agrees to proceed with procedure.
[2021-09-07] MEDS: ceFAZolin 2 GM/D5W 50 ML 2 GM/50 ML BAG IVPB (07:26)
[2021-09-07] MEDS: BUPIVACAINE HCL 0.5% PF 30 ML VIAL INFILTRATE (08:03)
--- NOTE | 2021-09-07 09:49 | W.PM.PROC2 ---
Procedure Note - Detailed Date of Procedure 09/07/21 Pre-op Diagnosis cecal polyp Post-op Diagnosis same Procedure Performed Hand access laparoscopic right colectomy Surgeon Abram Sandoval MD Mixing Tumbler Operator Rosa PELAEZ Anesthesia general and local (0.5% bupivacaine) Indications Patient had a colonoscopy which was done for surveillance. This showed a sessile polyp in the cecum. It was unresectable colonoscopically E. Biopsies showed a tubulovillous adenoma. She is taken to surgery now for laparoscopic right colectomy. Findings Polyp noted in the cecum. No other significant findings appreciated. Description of Procedure Patient was taken to surgery and induced into general anesthesia. The abdomen is prepped and draped. The area in the upper abdomen for the hand access port was noted. The proposed incision just above the umbilicus in the midline was drawn on the skin. Local was infiltrated in the area of the anticipated incision and in the subcutaneous. Incision was made dissection was carried down through the subcutaneous. Additional local was infiltrated into the fascia. The fascia was opened in the midline and extended the length of the wound. The peritoneum was opened and extended likewise. The Moise wound guard was then placed. The GelPort was placed. With the hand in the abdomen, I infiltrated local and placed a 5 mm port in the right lower quadrant just over the inguinal ligament. We insufflated through this port. The camera was then placed. A 5 mm port was placed in the left lower quadrant under direct visualization. Patient was placed in Trendelenburg. Elevating the cecum and distal ileum, dissection was started at the base of the mesentery to the distal ileum. Nearly all the dissection was done with the LigaSure. We divided the peritoneum here and entered the retroperitoneum. Dissection was done in a medial to lateral manner. Some adhesions of omentum to the right lower quadrant and right sidewall were freed as well with the LigaSure. Eventually, I entered the retroperitoneal space and was able to gently dissect up to the transverse colon mesentery. The dissection went just above the duodenum. This area of retroperitoneum was dissected further leaving the lateral peritoneal attachments to the right colon. Blood loss was minimal. I then elevated and dissected into the distal ileal mesentery. The mesentery to the distal ileum about 15 cm proximal to the ileocecal valve was divided with the LigaSure. I then dissected over to the ileocolic artery. The mesentery was opened on both sides of the ileocolic artery and it was dissected free at its base. The LigaSure was then used to divide the ileocolic artery near its base. No bleeding occurred. We continued our dissection of the ascending colon mesentery up to the transverse colon mesentery. From there we also dissected some of the transverse colon mesentery including the right branch of the middle colic artery. This was divided with the LigaSure as well. I then took down the lateral peritoneal attachments to the ascending colon. The hepatic colic ligaments were divided. This freed up the entire ascending colon specimen. We stopped insufflation and removed the GelPort. The ascending colon with the transverse colon and distal ileum were eviscerated. I inspected the areas of dissection in all looked good. The bowel appeared quite healthy. A little more mesentery to both the transverse colon and the distal ileum was divided with the cautery. I then placed the portion of distal ileum as well as the more distal transverse colon in [id number] proximity. Lembert sutures of 4-0 silk were then placed to approximate these two. Using the double staple technique, I made a small opening in the more proximal transverse colon as well as the more distal ileum. The TLC 75 stapler was taken apart and each end was passed through the appropriate opening. The stapler was then approximate
[2021-09-07] MEDS: ePHEDrine sulfate INJ 50 MG/ML AMPUL 10 MG IV PUSH (10:10)
--- NOTE | 2021-09-07 11:01 | SUR.PHASEI ---
No beds are available at this time.
--- NOTE | 2021-09-07 11:06 | SUR.PHASEI ---
Simple mask removed at 1105.
--- NOTE | 2021-09-07 11:56 | SUR.PHASEI ---
1145: Patient met criteria for the floor but since there is no beds available at this time, patient is in holding in outpatient room 16.
[2021-09-07] MEDS: fentaNYL CITRATE INJ (*CRX) 100 MCG/2 ML VIAL 25 MCG IV PUSH ×4 (12:06→12:25)
[2021-09-07] MEDS: HYDROmorphone HCL INJ (*CRX) 1 MG/ML SYR 0.5 MG IV PUSH ×2 (12:55→13:13)
--- NOTE | 2021-09-07 15:02 | ADMGEN ---
This patient, Annie Bradley, was admitted to Medical Room 340-01. Patient/family oriented to hospital policies and general routines including ID bracelet, bed and alarms, visiting hours, pain management, procedures, bathroom and other care routines, personal items, smoking policy, room service/diet, and visiting hours. Information on how to activate the Rapid Response Team has been discussed. Patient/Family are encouraged to report perceived risks to care and to ask questions if they do not understand what they are told or what they should do. patient in bed resting comfortably at this time with no complaints of pain. Will continue to monitor.
[2021-09-07] MEDS: LACTATED RINGERS 1,000 ML 80 ML IV CONT (15:54)
[2021-09-07] MEDS: HYDROcodone/acetaminophen (*CRX) 10-325 MG TABLET 1 TAB PO ×2 (15:54→20:54)
[2021-09-07] MEDS: MORPHINE SULFATE (*CRX) 2 MG/ML INJ IV PUSH (18:01)
[2021-09-07] MEDS: traZODone HCL 50 MG TABLET BY MOUTH (20:53)
[2021-09-07] MEDS: FLUoxetine HCL 20 MG CAPSULE BY MOUTH (20:53)
[2021-09-07] MEDS: METOPROLOL SUCCINATE EXT REL 50 MG TABCR BY MOUTH (20:53)
[2021-09-07] MEDS: ATORVASTATIN 10 MG TABLET BY MOUTH (20:53)
[2021-09-07] MEDS: FAMOTIDINE 20 MG/2 ML VIAL IV PUSH (20:54)
[2021-09-08 00:46] VITALS: BP 121/65; PULSE 95; RESP 16; TEMP 36.2; O2SAT 95
[2021-09-08] MEDS: LACTATED RINGERS 1,000 ML 80 ML IV CONT (04:22)
[2021-09-08 05:01] VITALS: BP 152/72; PULSE 76; RESP 16; TEMP 36.5; O2SAT 98
[2021-09-08] MEDS: LEVOTHYROXINE SODIUM 50 MCG TABLET BY MOUTH (05:45)
[2021-09-08 06:55] LABS: Hematocrit 35.6 % (37.0-47.0); Hemoglobin 11.6 g/dL (12.0-15.0); Mean Corpuscular HGB Conc 32.6 g/dl (32-36); Mean Corpuscular Hemoglobin 30.4 pg (26-34); Mean Corpuscular Volume 93.4 fl (80-100); Mean Platelet Volume 10.1 fl (7.4-10.4); Platelet Count Result 181 k/mm3 (150-375); Red Blood Count 3.81 M/mm3 (4.2-5.4); Red Cell Distribution Width 12.4 % (11.5-14.5); White Blood Count 13.8 K/mm3 (4.5-10.0)
[2021-09-08 07:19] LABS: Anion Gap 5 mmol/L (8-16); Blood Urea Nitrogen 14 mg/dL (7-17); Calcium 8.8 mg/dL (8.4-10.2); Carbon Dioxide 27 mmol/L (22-30); Chloride 102 mmol/L (98-107); Estimated CRCL calculation 72 ml/min; Estimated Glomerular Filt Rate > 60; Glucose 132 mg/dL (65-110); Potassium 4.1 mmol/L (3.4-5.0); Sodium 134 mmol/L (137-145)
[2021-09-08] MEDS: HYDROcodone/acetaminophen (*CRX) 10-325 MG TABLET 1 TAB PO ×3 (08:46→21:42)
[2021-09-08] MEDS: FAMOTIDINE 20 MG/2 ML VIAL IV PUSH ×2 (09:05→20:36)
[2021-09-08] MEDS: ENOXAPARIN 40 MG/0.4 ML SYRINGE SUB-Q (09:05)
--- NOTE | 2021-09-08 12:47 | PM.PNGS ---
Progress Note: A&P Assessment and Plan (1) Tubulovillous adenoma: Code(s): D36.9 - Benign neoplasm, unspecified site Status: Chronic Assessment and Plan: POD1 and doing well. Pain well-controlled. Tolerating activity. Will advance to a regular diet. Stop IV fluids. Start increasing activity, encouraged her to ambulate in the halls at least 4 times today. Pathology pending. Repeat labs tomorrow. (2) Hypertension: Code(s): I10 - Essential (primary) hypertension Status: Chronic Assessment and Plan: BP stable. Slightly elevated prior to getting her morning medications. Continue metoprolol and monitor. Additional Plan I have discussed the patient's case and plan of care with Dr. Sandoval. Subjective Subjective Date/Time Seen: 09/08/21 11:47 Post Op day: 1 (PAT right colon resection) Patient reports: tolerating a regular diet, voiding w/o difficulty, no flatus, no bowel movement and afebrile Interval history: This is a 61 yo F who was found to have a sessile cecal polyp on colonoscopy that showed tubulovillous adenoma. She presented yesterday for a scheduled PAT right colectomy. Chart reviewed. Patient is seen and examined on the medical floor. She is doing well today and reports just some soreness at her incisions and some right shoulder and neck pain. She has walked the halls just before my entering the room and feels the neck and shoulder pain has improved. She is tolerating her diet without any nausea or vomiting. No significant bloating. Her post-op pain is well controlled. No other complaints at this time. Review of Systems Review of Systems: All systems reviewed & are unremarkable except as noted in HPI and below Constitutional: Constitutional: Reports as per HPI, Reports no additional constitutional complaints, Denies chills and Denies fever(s) Cardiovascular: Cardiovascular: Reports no additional cardiovascular complaints, Denies chest pain and Denies leg edema Respiratory: Respiratory: Reports no additional respiratory complaints, Denies cough and Denies dyspnea Gastrointestinal: Gastrointestinal: Reports as per HPI and Reports no additional gastrointestinal complaints Neurologic: Reports system reviewed and no additional complaints, except as documented, Denies Abnormal speech present and Denies focal weakness Exam Const: General: comfortable, no acute distress, alert and awake Orientation/consciousness: patient oriented x3 Neck: Thyroid: abnormal thyroid Resp: Effort & Inspection: normal respiratory effort Auscultation: clear to auscultation bilaterally Cardio: Rate: regular rate Rhythm: regular rhythm GI: Inspection: non-distended and incision (Abdominal incisions clean and dry, glue intact.) GI Palp: Yes Soft to palpation and Yes Tenderness to palpation present (GI) (incisional) Auscultation: normal bowel sounds Skin: General skin exam: normal color Neuro: General: moves all extremities and no focal motor deficits Extrem: General: no clubbing, cyanosis or edema and no calf tenderness Psych: Mental Status: mental status grossly normal Insight: Good insight present (Psych) Judgement: Good judgement present (Psych) Objective Data Vital Signs Vital Signs: Vital Signs - 24 hr 09/07/21 13:00 09/07/21 13:30 09/07/21 14:10 Temperature Pulse Rate 79 85 80 Respiratory Rate 20 20 20 Blood Pressure 120/67 108/60 104/72 Pulse Oximetry 09/07/21 14:36 09/07/21 15:14 09/07/21 17:27 Temperature 97.6 F 97.6 F 98.1 F Pulse Rate 81 85 95 Respiratory Rate 18 18 18 Blood Pressure 119/73 130/78 119/72 Pulse Oximetry 96 95 98 09/07/21 20:43 09/07/21 20:53 09/08/21 00:46 Temperature 97.4 F L 97.1 F L Pulse Rate 81 84 95 Respiratory Rate 16 16 Blood Pressure 123/63 121/65 Pulse Oximetry 97 95 09/08/21 05:01 Temperature 97.7 F Pulse Rate 76 Respiratory Rate 16 Blood Pressure 152/72 H Pulse Oximetry 98 Intake/Output Intake/Output: Intake & Output
--- NOTE | 2021-09-08 13:44 | WPDANESPN ---
Anes - Prog Note Post-Op Date/Time: 09/08/21 13:44 Cardiovascular status: normal Respiratory status: normal Airway patency: baseline Mental status: baseline Post-Op hydration status: normal Vital Signs: Last Vital Signs Temp 97.7 F 09/08/21 05:01 Pulse 76 09/08/21 05:01 Resp 16 09/08/21 05:01 BP 152/72 H 09/08/21 05:01 Pulse Ox 98 09/08/21 05:01 Pain Score (VAS): 4 I/O: Intake & Output 09/07/21 09/08/21 09/08/21 23:59 07:59 15:59 Intake Total 120 1200 480 Output Total 200 300 Balance -80 1200 180 Laboratory Tests 09/08/21 06:14 09/08/21 06:14 09/08/21 09/08/21 06:14 06:14 WBC 13.8 H RBC 3.81 L Hgb 11.6 L Hct 35.6 L MCV 93.4 MCH 30.4 MCHC 32.6 RDW 12.4 Plt Count 181 MPV 10.1 Sodium 134 L Potassium 4.1 Chloride 102 Carbon Dioxide 27 Anion Gap 5 L BUN 14 D Creatinine 0.60 L Estim Creat Clear Calc 72 Estimated GFR > 60 Glucose 132 H Calcium 8.8 Post-procedural complaints: none Patient Feedback: Patient satisfied with anesthetic care.
[2021-09-08 14:23] VITALS: BP 116/64; PULSE 78; RESP 16; TEMP 36.8; O2SAT 96
[2021-09-08 20:00] VITALS: PULSE 72; RESP 16; O2SAT 96
[2021-09-08 20:21] VITALS: BP 115/66; PULSE 64; RESP 16; TEMP 36.6; O2SAT 96
[2021-09-08] MEDS: ATORVASTATIN 10 MG TABLET BY MOUTH (20:38)
[2021-09-08] MEDS: FLUoxetine HCL 20 MG CAPSULE BY MOUTH (20:38)
[2021-09-08] MEDS: ALVIMOPAN 12 MG CAPSULE PO (20:38)
[2021-09-08 20:39] VITALS: PULSE 72
[2021-09-08] MEDS: traZODone HCL 50 MG TABLET BY MOUTH (20:39)
[2021-09-08] MEDS: METOPROLOL SUCCINATE EXT REL 50 MG TABCR BY MOUTH (20:39)
[2021-09-09 05:52] VITALS: BP 148/79; PULSE 71; RESP 18; TEMP 36; O2SAT 97
[2021-09-09] MEDS: LEVOTHYROXINE SODIUM 50 MCG TABLET BY MOUTH (05:53)
[2021-09-09 06:13] LABS: Hematocrit 39.2 % (37.0-47.0); Hemoglobin 12.6 g/dL (12.0-15.0); Mean Corpuscular HGB Conc 32.1 g/dl (32-36); Mean Corpuscular Hemoglobin 31.6 pg (26-34); Mean Corpuscular Volume 98.2 fl (80-100); Platelet Count Result 213 k/mm3 (150-375); Red Blood Count 3.99 M/mm3 (4.2-5.4); Red Cell Distribution Width 12.9 % (11.5-14.5)
[2021-09-09 06:24] LABS: Anion Gap 5 mmol/L (8-16); Blood Urea Nitrogen 23 mg/dL (7-17); Calcium 9.3 mg/dL (8.4-10.2); Carbon Dioxide 30 mmol/L (22-30); Chloride 102 mmol/L (98-107); Estimated CRCL calculation 55 ml/min; Estimated Glomerular Filt Rate > 60; Glucose 97 mg/dL (65-110); Potassium 3.7 mmol/L (3.4-5.0); Sodium 137 mmol/L (137-145)
[2021-09-09] MEDS: ALVIMOPAN 12 MG CAPSULE PO (09:01)
[2021-09-09] MEDS: FAMOTIDINE 20 MG/2 ML VIAL IV PUSH (09:03)
[2021-09-09] MEDS: ENOXAPARIN 40 MG/0.4 ML SYRINGE SUB-Q (09:03)
--- NOTE | 2021-09-09 11:40 | PM.DS ---
DS: Admitting Diagnosis Discharge Date 09/09/2021 Admitting Diagnosis benign polyp of the cecum DS: Discharge Diagnosis Discharge Diagnosis (1) Tubulovillous adenoma: Code(s): D36.9 - Benign neoplasm, unspecified site Status: Chronic (2) Cecal polyp: Code(s): K63.5 - Polyp of colon Status: Chronic (3) Hypertension: Code(s): I10 - Essential (primary) hypertension Status: Chronic DS: Summary Hospital Course Hospital Course: patient is a 61-year-old woman who underwent screening colonoscopy by Dr. Jus lyon. This showed a sessile polyp in the cecum which was unable to be resected colonoscopically. Biopsies showed this to be a tubulovillous adenoma. The patient was seen in the office. After discussion she was prepared for surgery and taken to the operating room on the day of admission 09/07/2021. Hand access laparoscopic right colectomy was performed. The surgery went well. The patient was started on oral intake the day of surgery. She was advanced to solid food on Postop day 1. She was comfortable on oral analgesics and able to be discharged on postop day 2. She was tolerating regular diet and had had a bowel movement. Pathology did show a benign tubulovillous adenoma. Her appendix was normal as well. Status at Discharge Functional status at discharge: independent ambulation Overall status at discharge: patient is progressing back to baseline Time Spent with Patient Time attestation: Total time spent providing and/or coordinating discharge services: Exam Const: General: comfortable and no acute distress; No confusion Orientation/consciousness: patient oriented x3 and No confusion GI: Inspection: non-distended and incision ( Dry and healing well) GI Palp: Yes Soft to palpation, Yes Tenderness to palpation present (GI) ( mild, appropriate tenderness), No Guarding due to palpation present (GI) and No Rebound tenderness present Neuro: General: patient oriented x3, no focal motor deficits and No confusion Extrem: General: no calf tenderness and no edema Psych: Affect: normal affect Insight: Good insight present (Psych) Judgement: Good judgement present (Psych) DS: Data Data Completed and Pending Completed studies during hospitalization: Pending at discharge 09/07/21 08:42 Surgical [PTH] Routine Labs on day of discharge: Labs from last 24 hours 09/09/21 09/09/21 05:55 05:55 WBC 12.0 H RBC 3.99 L Hgb 12.6 Hct 39.2 MCV 98.2 D MCH 31.6 MCHC 32.1 RDW 12.9 Plt Count 213 MPV 10.0 Sodium 137 Potassium 3.7 Chloride 102 Carbon Dioxide 30 Anion Gap 5 L BUN 23 H Creatinine 0.80 Estim Creat Clear Calc 55 Estimated GFR > 60 Glucose 97 Calcium 9.3 Discharge Plan Discharge Attending physician on discharge: Abram Sandoval Discharging Clinician: Abram Sandoval Anticipated Discharge Date/Time: 09/09/21 11:44 Patient Disposition: Home, Self-Care Activity: may shower, no straining and as tolerated Diet: as tolerated and regular Wound Care Instructions: incision open to air Discharge Instructions: Ambulate 3-4 x per day and as tolerated. No lifting over 15-20lbs. May bathe or shower. Stairs are OK. May drive a car in 3 days. Patient Instructions: Antibiotic Form, Pain Management (DC) Stand Alone Forms: General Discharge Information Follow-up/Referrals: Abram Sandoval MD [Physician] - 2 Weeks Discharge Medications: New hydrocodone-acetaminophen 5-325 mg tablet 1 - 2 tablet PO Q6H PRN (Reason: pain) Qty: 7 RF: 0 Continued multivitamin [Multi-Vitamin] Tablet 1 tablet PO HS RF: 0 calcium citrate-vitamin D3 [Calcium Citrate + D] 315 mg-5 mcg (200 unit) Tablet 1 tablet PO HS RF: 0 trazodone 50 mg tablet 50 mg HS RF: 0 atorvastatin 10 mg tablet 10 mg HS RF: 0 metoprolol succinate 50 mg tablet extended release 24 hr 50 mg HS RF:
[2021-09-09] MEDS: HYDROcodone/acetaminophen (*CRX) 10-325 MG TABLET 1 TAB PO (14:16)
== END 2021-09-09 14:54 | disposition home or self-care (01) | DRG 331 ==
LOC: ANH3MED 14:19
PROVIDERS: Admitting Provider Surgery; PCP Family Medicine; Visit Provider Surgery
PROC: 0DTF4ZZ Resection of Right Large Intestine, Percutaneous Endoscopic Approach (ICD-10-PCS; CPT 44204; principal; 2021-09-07 07:30)
DX: D12.0 Benign neoplasm of cecum (principal); F41.9 Anxiety disorder, unspecified; E03.9 Hypothyroidism, unspecified; E78.2 Mixed hyperlipidemia; M06.9 Rheumatoid arthritis, unspecified; I10 Essential (primary) hypertension; Z88.2 Allergy status to sulfonamides; K66.0 Peritoneal adhesions (postprocedural) (postinfection)
CPT/HCPCS: 36415; 80048; 82378; 85025; 85027; 88309; A9270; J0690; J1100; J1170; J1650; J2250; J2270; J2370; J2405; J2704; J2710; J3010; J7120

== ENCOUNTER → 2022-01-04 15:41 | Outpatient (CLI) | payer OTHER, SELFPAY ==
--- NOTE | ~2022-01-04 | XR_ITS ---
EXAMINATION: XR chest 2V DATE: 01/04/2022 16:52 INDICATION: Chest pain, unspecified. TECHNIQUE: Frontal and lateral views of the chest were obtained. COMPARISON: Chest 2 views 06/23/2020 FINDINGS: The chest demonstrates clear lungs without pneumonia, pleural effusion, or pneumothorax. Th e heart size is normal. IMPRESSION: 1. No acute cardiopulmonary disease. Reviewed, dictated and finalized at location A.
--- NOTE | ~2022-01-04 | XR_ITS ---
EXAMINATION: XR thoracic spine 3V DATE: 01/04/2022 16:52 INDICATION: Dorsalgia, unspecified. TECHNIQUE: 3 views of thoracic spine standing were obtained. COMPARISON: None. FINDINGS: There is 8 degrees levoscoliosis from T2 to T5 by the Han method. Vertebral body heights a re normal. There is mildly decreased disc height at T5-T6 and T6-T7. The facet joints are unremarkabl e. IMPRESSION: 1. Mild thoracic spondylosis. Reviewed, dictated and finalized at location A.
== END ==
PROVIDERS: PCP Family Medicine; Visit Provider Family Medicine
DX: R07.89 Other chest pain (principal); M41.9 Scoliosis, unspecified; M47.814 Spondylosis without myelopathy or radiculopathy, thoracic region
CPT/HCPCS: 71046; 72072

== ENCOUNTER → 2023-11-06 13:56 | Outpatient (CLI) | payer OTHER, SELFPAY ==
--- NOTE | ~2023-11-06 | MR_ITS ---
MRI of the thoracic spine Clinical History: Chronic back pain Technique: Axial T2-weighted and gradient images, and sagittal T1-weighted, T2-weighted, and STIR michael ges were acquired. Findings: There is no fracture or subluxation of the thoracic spine. Vertebral bodies maintain normal height and alignment. Probable intraosseous hemangioma T7. No suspicious bone marrow signal abnormal ity seen. No significant disc bulge or herniation seen at any thoracic level. No spinal canal stenosis or cord compression identified. No epidural mass or collection seen. No abnormal signal seen in the spinal cord. Paravertebral soft tissues are unremarkable. Impression: No significant abnormality seen. Reviewed, dictated and finalized at [facility]. T ANATOMIST Impression: No significant abnormality seen.
== END ==
DX: M54.50 Low back pain, unspecified (principal); G89.4 Chronic pain syndrome
CPT/HCPCS: 72146

== ENCOUNTER 2023-12-18 13:19 | Outpatient (CLI) | payer OTHER, SELFPAY ==
--- NOTE | ~2023-12-18 | MR_ITS ---
EXAMINATION: MR cervical spine wo con DATE: 12/18/2023 14:21 INDICATION: Cervical radiculopathy. Neck pain. Bilateral arm and shoulder pain. TECHNIQUE: Magnetic resonance imaging (MRI) of the cervical spine was performed without intravenous c ontrast. COMPARISON: None FINDINGS: Bone alignment is normal. Vertebral body heights are normal. There is moderately decreased disc height at C5-C6 and C6-C7. The spinal cord signal intensity is normal. The following disc levels are specifically discussed: C2-C3: The disc does not extend beyond the endplate margin. There is no uncovertebral joint osteoarth ritis. There is severe bilateral facet joint osteoarthritis. There is mild right neural foraminal landon nosis. There is no central canal stenosis. C3-C4: There is a central protrusion. There is mild bilateral uncovertebral joint osteoarthritis. The re is severe bilateral facet joint osteoarthritis. There is mild bilateral neural foraminal stenosis. There is no central canal stenosis. C4-C5: The disc does not extend beyond the endplate margin. There is mild right uncovertebral joint o steoarthritis. There is severe right and mild left facet joint osteoarthritis. There is mild right ne ural foraminal stenosis. There is no central canal stenosis. C5-C6: The disc is bulging. There is severe bilateral uncovertebral joint osteoarthritis. There is mi ld right and moderate left facet joint osteoarthritis. There is mild right and moderate left neural f oraminal stenosis. There is mild central canal stenosis. C6-C7: The disc is bulging. There is moderate bilateral uncovertebral joint osteoarthritis. There is moderate bilateral facet joint osteoarthritis. There is mild bilateral neural foraminal stenosis. The re is no central canal stenosis. C7-T1: The disc does not extend beyond the endplate margin. There is no uncovertebral joint osteoarth ritis. There is mild right and severe left facet joint osteoarthritis. There is mild left neural fora elsa stenosis. There is no central canal stenosis. IMPRESSION: 1. Moderate cervical spondylosis. Reviewed, dictated and finalized at location A.
--- NOTE | ~2023-12-18 | MR_ITS ---
EXAMINATION: MR shoulder LT wo con DATE: 12/18/2023 14:16 INDICATION: Rotator cuff arthropathy. Left shoulder TECHNIQUE: Magnetic resonance imaging (MRI) of the left shoulder was performed without intravenous co ntrast. Sequences included axial PD-weighted FS FSE, coronal oblique PD-weighted FS FSE, coronal obli que T2-weighted FS FSE, sagittal PD-weighted FS FSE, and sagittal T1-weighted SE. COMPARISON: None. FINDINGS: Coracoacromial arch: The acromion undersurface is curved in morphology (type II). The coracoacromial ligament is normal. M inimal acromioclavicular osteoarthritis.. Rotator cuff: Mild supraspinatus and subscapularis tendinopathy without tear. The infraspinatus, teres minor tendon s are normal. Normal rotator cuff muscle bulk and signal. Biceps tendon, glenoid labrum and glenohumeral cartilage: Long head of the biceps tendon is normal. Nonuniform mild partial-thickness cartilage loss with stefan h chondral surface and without degenerative subchondral changes along the inferomedial and superomedi al aspects of the humeral head and the cephalad aspect of the glenoid. There is increased fluid signa l at the 9:00-10:00 position of the posterior rim of the glenoid which could represent either subarti cular edema-like and cystlike changes related to high-grade chondromalacia with focal increased signa l at the overlying posterior chondral labral junction. The labrum is otherwise normal. Fluid: Small glenohumeral joint effusion. No loose osteochondral bodies. No abnormal fluid signal in the sub acromial/subdeltoid bursa to suggest bursitis. Bones: Normal marrow signal with no edema, fracture or abnormal marrow replacing process. IMPRESSION: 1. Mild glenohumeral osteoarthritis with small region of subarticular edema-like versus cystlike foreman ge at the 9:00-10:00 position likely related to overlying high-grade chondromalacia along the chondra l labral junction. 2. Mild supraspinatus and subscapularis tendinopathy without tear. 3. Small glenohumeral joint effusion. Reviewed, dictated and finalized at location L. IMPRESSION: 1. Mild glenohumeral osteoarthritis with small region of subarticular edema-lik e versus cystlike change at the 9:00-10:00 position likely related to overlying high-grade chondromalacia along the chondral labral junction. 2. Mild supraspinatus and subscapularis tendinopathy without tear. 3. Small glenohumeral joint effusion.
== END 2023-12-18 13:20 ==
LOC: MICIMG 13:20
PROVIDERS: PCP Registered Nurse
DX: M54.12 Radiculopathy, cervical region (principal); M12.812 Other specific arthropathies, not elsewhere classified, left shoulder; M43.02 Spondylolysis, cervical region; M77.8 Other enthesopathies, not elsewhere classified; M25.412 Effusion, left shoulder
CPT/HCPCS: 72141; 73221

== ENCOUNTER 2024-03-04 10:49 | Outpatient (CLI) | payer OTHER, SELFPAY ==
--- NOTE | ~2024-03-04 | MR_ITS ---
MRI of the brain Clinical History: Meningioma Technique: Axial and sagittal T1-weighted images were acquired. These were followed by axial T2-weigh lou, diffusion weighted, gradient, and FLAIR images. Following intravenous administration of 13 cc M ultiHance gadolinium, T1-weighted fat-sat imaging was performed in the axial, sagittal, and coronal p lanes. Findings: There is a 1.6 x 1.0 cm extra-axial enhancing mass along the right side of the anterior, wise perior falx cerebri, most consistent with meningioma (axial postcontrast image 22). No other intracra nial mass lesion identified. No acute infarct or intracranial hemorrhage. There are minimal chronic m icrovascular ischemic changes in the white matter bilaterally. Ventricles and subarachnoid spaces are unremarkable. Orbits are unremarkable. Paranasal sinuses and m astoid air cells are clear. Major intracranial flow voids are intact. Sagittal midline structures are intact. IMPRESSION: 1.6 x 1.0 cm meningioma, as detailed above. Minimal chronic microvascular ischemic changes. Reviewed, dictated and finalized at location M.
== END 2024-03-04 10:50 ==
PROVIDERS: PCP Registered Nurse
DX: D32.9 Benign neoplasm of meninges, unspecified (principal)
CPT/HCPCS: 70553; A9577

== ENCOUNTER 2024-05-09 09:17 | Outpatient (CLI) | payer MEDICARE, OTHER, SELFPAY ==
--- NOTE | ~2024-05-09 | MR_ITS ---
EXAMINATION: MR knee RT wo con DATE: 05/09/2024 09:49 INDICATION: Patellofemoral disorders, right knee. Right knee pain. TECHNIQUE: Magnetic resonance imaging (MRI) of the right knee was performed without intravenous contr ast. COMPARISON: Right knee radiographs 07/05/2020 FINDINGS: There is a total right knee arthroplasty. Artifact obscures much of the anatomy. There is a small kne e joint effusion. There is a small Maradiaga's cyst. IMPRESSION: 1. Total right knee arthroplasty with artifact that obscures much of the anatomy. 2. Small knee joint effusion. 3. Small Maradiaga's cyst. Reviewed, dictated and finalized at location A. IMPRESSION: 1. Total right knee arthroplasty with artifact that obscures much of the anatom y. 2. Small knee joint effusion. 3. Small Maradiaga's cyst.
== END 2024-05-09 09:18 ==
LOC: MICIMG 09:18
PROVIDERS: PCP Registered Nurse; Visit Provider Registered Nurse
DX: M22.2X1 Patellofemoral disorders, right knee (principal); M25.461 Effusion, right knee; M71.21 Synovial cyst of popliteal space [Baker], right knee; Z96.651 Presence of right artificial knee joint
CPT/HCPCS: 73721

== ENCOUNTER 2025-02-16 12:09 | Outpatient (CLI) | payer MEDICARE, OTHER, SELFPAY ==
--- NOTE | ~2025-02-16 | MR_ITS ---
MRI of the lumbar spine Clinical History: Back pain Technique: Axial T2-weighted images, and sagittal T1-weighted, T2-weighted, and T2 fat-sat images wer e acquired. Findings: No acute fracture or subluxation seen. Vertebral bodies maintain normal height and alignmen t. No bone marrow signal abnormality seen. At L1-L2, there is no disc bulge or herniation. There is minimal facet joint degenerative change. No spinal canal stenosis or neural foraminal narrowing. At L2-L3, there is advanced degenerative disc narrowing. There is no significant disc bulge or hernia tion. There is mild facet arthropathy. No central canal stenosis or neural foraminal narrowing. At L3-L4, there is minimal disc bulge and mild facet arthropathy. No central canal stenosis or neural foraminal narrowing. At L4-L5, there is minimal disc bulge and mild to moderate facet arthropathy. No central canal stenos is or neural foraminal narrowing. At L5-S1, there is minimal disc bulge. There is mild facet arthropathy. No central canal stenosis or neural foraminal narrowing. Paravertebral soft tissues are unremarkable. Impression: Mild degenerative change overall, as above. Reviewed, dictated and finalized at location . Impression: Mild degenerative change overall, as above.
== END 2025-02-16 12:10 | disposition home or self-care (01) ==
LOC: MICIMG 12:10
PROVIDERS: PCP Registered Nurse; Visit Provider Orthopaedic Surgery
DX: M47.816 Spondylosis without myelopathy or radiculopathy, lumbar region (principal)
CPT/HCPCS: 72148

== ENCOUNTER 2025-02-27 13:35 | Outpatient (CLI) | payer MEDICARE, OTHER, SELFPAY ==
--- NOTE | ~2025-02-27 | MR_ITS ---
MRI of the brain Clinical History: Meningioma Technique: Axial and sagittal T1-weighted images were acquired. These were followed by axial T2-weigh lou, diffusion weighted, gradient, and FLAIR images. Following intravenous administration of 10 cc Mu ltiHance gadolinium, T1-weighted fat-sat imaging was performed in the axial and coronal and sagittal planes. COMPARISON: 03/04/2024 Findings: No acute infarct or intracranial hemorrhage identified. There are minimal chronic white mat ter changes in the periventricular white matter bilaterally. Ventricles and subarachnoid spaces are unremarkable. Orbits are unremarkable. Paranasal sinuses and m astoid air cells are essentially clear. Major intracranial flow voids are intact. Sagittal midline structures are intact. There is an enhancing mass arising from the right side of the superior falx cerebri measuring approxi mately 1.8 cm in diameter with small dural tail. This is compatible with meningioma, unchanged. IMPRESSION: Stable 1.8 cm meningioma at the right side of the superior falx cerebri. Minimal chronic microvascular ischemic changes. Reviewed, dictated and finalized at location .
== END 2025-02-27 13:36 | disposition home or self-care (01) ==
LOC: MICIMG 13:36
PROVIDERS: PCP Registered Nurse
DX: D32.0 Benign neoplasm of cerebral meninges (principal)
CPT/HCPCS: 70553; A9577